=== PATIENT | male | born 1955 | race Two or more races ===

== ENCOUNTER 2022-10-28 20:31 | Emergency (ER) | payer MEDICARE, OTHER ==
[~2022-10-28] VITALS: Ht 170.2 cm; Wt 81.8 kg
[2022-10-28] MEDS ORDERED: ONDA-144 PO (23:45)
[2022-10-28] MEDS ORDERED: ONDANSETRON ODT 4 MG TAB PO ONE (23:45)
[2022-10-28] MEDS ORDERED: HYDROcodone-ACET 5/325MG TAB PO ONE (23:45)
[2022-10-28] MEDS ORDERED: HYDR-4902 PO (23:45)
[2022-10-28 23:57] VITALS: BP 146/50
== END 2022-10-29 00:03 | disposition home or self-care (01) ==
LOC: ER 20:31
DX: M25.572 Pain in left ankle and joints of left foot (principal); V87.8XXA Person injured in other specified noncollision transport accidents involving motor vehicle (traffic), initial encounter; Y93.89 Activity, other specified; Y92.89 Other specified places as the place of occurrence of the external cause; Y99.8 Other external cause status
CPT/HCPCS: 29515; 73610; 99283; Q0162